=== PATIENT | male | born 1975 | race Caucasian/White ===

== ENCOUNTER → 2016-12-10 | Outpatient (CLI) | payer OTHER ==
--- NOTE | ~2016-12-10 | EKG ---
PATIENT: RHINA ROSALES UNIT #: [id number] Ventricular Rate: 75 BPM Atrial Rate: 75 BPM P-R Interval: 172 ms QRS Duration: 90 ms Q-T Interval: 356 ms QTC Calculation(Bezet): 397 ms P [place]: 5 degrees Calculated T [place]: 7 degrees Diagnosis Line: Normal sinus rhythm Diagnosis Line: Minimal voltage criteria for LVH, may be normal Diagnosis Line: variant Diagnosis Line: Borderline ECG Diagnosis Line: No previous ECGs available Diagnosis Line: Confirmed by MIGUEL JACKSON MD ([id number]) on Diagnosis Line: 12/13/2016 10:46:33 AM INTERPRETING MD: MANUEL ROJAS
--- NOTE | ~2016-12-10 | CR63 ---
[facility] A Service of [facility] RADIOLOGY TEXT RESULTS PATIENT: RHINA ROSALES LOCATION: [facility] : 77 UNIT #: [id number] AGE: [address]: Joaquín Brownlee MD SEX: M ORDER DR: [id number] [place], [place] [address] [id number] MR#: [id number] Acc #: [id number] NAME: RHINA ROSALES : 1975 SEX: M STUDY DATE/TIME: 12/10/2016 09:40 UNIT: [facility] ROOM: STUDY DESCRIPTION: CR Chest 2 View Attending Physician: Joaquín Brownlee M.D. Referring Physician: Joaquín Brownlee M.D. Ordering Physician: Joaquín Brownlee M.D. Primary Care Physician: Primary Care Physician No MEDICAL IMAGING REPORT This report is preliminary unless electronic signature is present EXAM Chest 2 views 12/10/2016 0940 hours HISTORY 40-year-old man with history of hypertension, asthma and remote history of pneumonia. Preop for right shoulder surgery, right shoulder pain. COMPARISON None. FINDINGS Upright PA and 2 lateral views demonstrate normal cardiac, mediastinal and hilar contours. The lungs are well expanded. There are calcified granulomatous changes. There is no pleural effusion or pneumothorax. IMPRESSION Benign calcified granulomatous changes. No acute cardiopulmonary findings. Dictated by... Danna Martinez M.D. THIS IS AN ELECTRONICALLY VERIFIED REPORT Danna Martinez M.D. at 12/10/2016 1:54 PM CHALO/kirby TD: 12/10/2016 13:35 JOB #: [id number] MEDICAL IMAGING REPORT Page 1 of 1 COPY
[2016-12-10 09:36] LABS: HEMATOCRIT 39.3 % (38.0-50.0); HEMOGLOBIN 13.2 gm/dL (13.0-16.0); MEAN CELL VOLUME 90.9 FL (83-96); MEAN CORPUSCULAR HEMOGLOBIN 30.7 PG (28-34); MEAN CORPUSCULAR HGB CONC 33.7 g/dL (30-36); RED BLOOD COUNT 4.32 X10e (3.90-5.60); RED CELL DISTRIBUTION WIDTH 12.6 % (11.0-15.5); WHITE BLOOD COUNT 14.3 X10e3 (4.0-10.5)
[2016-12-10 10:13] LABS: CALCIUM SERUM 9.1 mg/dL (8.4-10.2); CREATININE SERUM 1.4 mg/dL (0.6-1.4); GLOM FILT RATE Estimated 62.9 mL/min (>60); POTASSIUM 4.8 mmol/L (3.5-5.1)
== END | disposition home or self-care (01) ==
LOC: CLAB 08:40
PROVIDERS: Orthopaedic Surgery
DX: Z01.818 Encounter for other preprocedural examination (principal); M25.511 Pain in right shoulder; J34.89 Other specified disorders of nose and nasal sinuses
CPT/HCPCS: 36415; 71020; 80048; 85027; 93005